=== PATIENT | male | born 1945 | race Caucasian/White ===

== ENCOUNTER 2019-06-22 23:39 | Observation (INO) ==
[2019-06-23 00:13] LABS: INFLUENZA A NEGATIVE (NEGATIVE); INFLUENZA B NEGATIVE (NEGATIVE)
--- NOTE | 2019-06-23 00:38 | PROVIDER DOCUMENTATION ---
This chart was entered by Kim Mancilla Scribe, acting as scribe for Demi Ochoa CRNP. HPI-General Adult - General Source: patient, EMS - History of Present Illness -Gen Adult Nature of Presenting Problems: pt is a 74 yowm presenting w/[facility] w/cc fever, N/V and weakness starting at 1500 today. denies diarrhea, cp and chills. denies pain. ems sts pt was able to ambulate to stretcher. Location of Pain/Injury: reports: generalized (weakness) Pain Radiation: reports: no radiation Quality of Pain: reports: none Severity: reports: mild Onset/Duration: reports: this afternoon Timing: reports: still present Context/Activities at Onset: reports: none Modifying Factors: improves with: nothing Associated Symptoms: reports: fever/chills, weakness <Demi Ochoa - Last Filed: 06/23/19 00:37> <Luis Maravilla - Last Filed: 06/23/19 05:06> - General Stated Complaint: weakness "Fever?" Time Seen by Provider: 06/22/19 23:46 Allergies/Adverse Reactions: Patient Allergies Allergy/AdvReac Type Severity Reaction Status Date / Time No Known Allergies Allergy Verified 06/23/19 02:32 Home Medications: Home Medication List Medication Instructions Recorded Confirmed Last Taken Type Amlodipine Besylate 1 tab PO DAILY 06/23/19 06/23/19 Unknown History Levothyroxine [Synthroid] 1 tab PO DAILY 06/23/19 06/23/19 Unknown History Lisinopril 1 tab PO DAILY 06/23/19 06/23/19 Unknown History Review of Systems - Adult - REVIEW OF SYSTEMS - ADULT Constitutional: reports: see HPI, fever. denies: chills, fatique, night sweats Eyes: reports: no symptoms reported Ears, Nose, Mouth & Throat: reports: no symptoms reported Cardiovascular: reports: no symptoms reported. denies: chest pain, irregular heart rate, palpitations Respiratory: reports: no symptoms reported Gastrointestinal: reports: no symptoms reported. denies: diarrhea, nausea, vomiting Genitourinary: reports: no symptoms reported Musculoskeletal: reports: see HPI, muscle weakness (generalized). denies: bone pain, back pain, frequent leg cramps, neck pain Integumentary: reports: no symptoms reported Neurological: reports: no symptoms reported Psychiatric: reports: no symptoms reported Endocrine: reports: no symptoms reported Hematologic/Lymphatic: reports: no symptoms reported Allergic/Immunologic: reports: no symptoms reported All Other Systems: Reviewed and Negative <Demi Ochoa - Last Filed: 06/23/19 00:37> Past History - Adult - PAST MEDICAL HISTORY-ADULT Review of Records: reports: Nursing Assessment Review, Medications Reviewed, Social history reviewed & non-contributory. Major Childhood Illnesses: reports: denies history Cardiovascular: reports: HTN Respiratory: reports: denies history Gastrointestinal: reports: denies history Obstetrical/Gynecological: reports: denies history Genitourinary: reports: denies history Musculoskeletal: reports: denies history Neurological: reports: denies history Endocrine/Immune: reports: denies history Other Conditions: reports: denies history - PRIOR SURGERIES/PROCEDURES Surgical/Procedure History: reports: none - IMMUNIZATION STATUS Childhood Immunizations: See Nurse Assessment Flu Vaccine: See Nurse Assessment - FAMILY HISTORY Family History: reviewed, not pertinent - SOCIAL HISTORY Smoking: non-smoker Substance Use: none/never <Demi Ochoa - Last Filed: 06/23/19 00:37> Physical Exam-General - PHYSICAL EXAM-ADULT Initial Vital Signs Reviewed: Yes - CONSTITUTIONAL General Appearance: appears well, alert, no apparent distress - EYES Eyes: PERRL/EOMI - HEAD, EARS, NOSE, MOUTH & THROAT HENMT: normocephalic/atraumatic, moist mucous membranes - NECK Neck: non-tender, full range of motion, supple, normal inspection - RESPIRATORY Respiratory: chest non-tender, lungs clear, normal breath sounds - CARDIOVASCULAR Cardiovascular: normal peripheral pulses, regular rate, rhythm - GASTROINTESTINAL (ABDOMEN) Abdominal Exam: normal bowel sounds, non tender, soft - MUSCULOSKELETAL Back Exam: normal inspection Extremity: normal range of motion, non-tender, normal inspection, normal capill emeli refill, pelvis stable - SKIN Integumentary: normal color, normal turgor, warm/dry - NEUROLOGIC Neurologic: grossly normal, no motor/sensory deficits - PSYCHIATRIC Psych/Mental Status: normal mood/affect, normal thought content, normal thought process, oriented x 3 <Demi Ochoa - Last Filed: 06/23/19 00:37> Progress - PLAN OF CARE/RESULTS Progress/Plan/Lab Results: Orders Category Date Time Status FSBS/Accucheck Result NOW Care 06/22/19 23:45 Active CBC WITH ELECTRONIC DIFF [HEME] Stat Lab 06/22/19 23:45 Ordered CMP [COMPREHENSIVE METABOLIC PANEL] [CHEM] Stat Lab 06/22/19 23:45 Uncollected - CHANGE OF SHIFT REPORT (ED Provider) 1 Report Given and Care Transferred to:: Dr. Maravilla Time of Transfer: 01:00 <Demi Ochoa - Last Filed: 06/23/19 00:37> - PLAN OF CARE/RESULTS Progress/Plan/Lab Results: Vital Signs - 8 hr 06/22/19 23:45 06/23/19 02:36 Temperature 99.4 F 97.6 F Pulse Rate 109 H 77 Respiratory Rate 18 18 Blood Pressure 121/80 108/77 O2 Sat by Pulse Oximetry 93 L 95 Laboratory Results - last 24 hr 06/22/19 06/23/19 06/23/19 23:51 00:22 00:22 WBC 17.05 H RBC 6.06 Hgb 18.0 Hct 51.5 MCV 85.0 MCH 29.7 MCHC 35.0 RDW Std Deviation 13.3 Plt Count 270 MPV 8.8 Immature Gran % (Auto) 0.2 Neut % (Auto) 90.7 H Lymph % (Auto) 2.9 L Eagle % (Auto) 6.0 Eos % (Auto) 0.1 Baso % (Auto) 0.1 Immature Gran # (Auto) 0.04 Neut # (Auto) 15.46 H Lymph # (Auto) 0.50 L Eagle # (Auto) 1.03 H Eos # (Auto) 0.01 Baso # (Auto) 0.01 Sodium 137 Potassium 4.6 Chloride 103 Carbon Dioxide 16 L Anion Gap 18 BUN 16 Creatinine 1.5 H Estimated GFR/1.73 m2 46 BUN/Creatinine Ratio 11 Glucose 113 H Calculated Osmolality 276 Calcium 9.5 Total Bilirubin 0.70 AST 18 ALT 21 Alkaline Phosphatase 81 Total Protein 7.4 Albumin 4.2 Globulin 3.0 Albumin/Globulin Ratio 1.0 Lipase 26 Influenza A (Rapid) NEGATIVE Influenza B (Rapid) NEGATIVE Orders Category Date Time Status FSBS/Accucheck Result NOW Care 06/22/19 23:45 Active Saline Loc NOW Care 06/22/19 23:46 Active cxr [CHEST-PORTABLE] [RAD] Stat Exams 06/22/19 23:47 Taken BLOOD CULTURE [BLDCUL] Stat Lab 06/23/19 02:20 Ordered CBC WITH ELECTRONIC DIFF [HEME] Stat Lab 06/22/19 23:45 Completed CMP [COMPREHENSIVE METABOLIC PANEL] [CHEM] Stat Lab 06/22/19 23:45 Completed Flu [INFLUENZA SCREEN PL] Stat Lab 06/22/19 23:51 Completed LIPASE [CHEM] Stat Lab 06/23/19 00:22 Completed URINALYSIS W/POSS RFLX CULT [URINALYSIS] Stat Lab 06/22/19 23:46 Uncollected Result Diagrams: 06/23/19 00:22 06/23/19 00:22 - XRAY 1 XRAY Study: Chest XRAY Interpretation: NAD - CT/MRI 1 CT Study: Abdomen, Pelvis CT Results: cholelithiasis with cholecystitis, mild sigmoid diverticulitis - CONSULTS/PCP/HOSPITALIST Notification #1 *Consult/PCP/Hospitalist*: Dr. Perez, surgeon correspondence clerk Time Discussed: 04:50 Reason/Comments: admit to hospitalist at [facility] #2 Consult: Dr. Guillen, hospitalist at [facility] Time Discussed: 05:00 Consult Disposition: Admit <Luis Maravilla - Last Filed: 06/23/19 05:06> Departure <Demi Ochoa - Last Filed: 06/23/19 00:37> - Departure Date of Disposition Decision: 06/23/19 Time of Disposition Decision: 05:06 Certified Medical Emergency: Emergent - Critical Care Note This patient required my direct & personal management of CC.: No <Luis Maravilla - Last Filed: 06/23/19 05:06> - Departure DIAGNOSIS: Weakness, Acute cholecystitis, Sigmoid diverticulitis Cholelithiasis Qualifiers: Cholelithiasis location: gallbladder Cholecystitis presence: with cholecystitis Cholecystitis acuity: acute Biliary obstruction: without biliary obstruction Qualified Code(s): K80.00 - Calculus of gallbladder with acute cholecystitis without obstruction Disposition: ADMITTED INPATIENT 09 Condition: Stable Referrals and Follow-Ups: None,PCP [Primary Care Provider] - Attestation - Physician/ PREETHI Attestation Patient care was provided by Advanced Practice Provider:: Yes Advanced Practice Provider:: Demi Ochoa Advanced Practice Provider documentation review:: The Mid-level provider documentation, treatment plan and medical decision making was reviewed by the physician who agrees with all treatment and medical decision making by the MLP. The physician spent face to face time with patient:: Yes Advanced Practice Provider documentation review:: Supervising physician onsite and consulted in the evaluation and care of this patient. The physician did have a face to face encounter with the patient. <Demi Ochoa - Last Filed: 06/23/19 00:37> This chart was documented by the indicated scribe, (Kim Mancilla Scribe) and accurately reflects the services I performed and decisions made by me, Demi Lin CRNP, as attested by the provider's signature.
[2019-06-23 01:20] LABS: BASO# 0.01 X1000 (0.0-0.2); BASO% 0.1 % (0.0-0.8); EOS# 0.01 X1000 (0.0-0.7); EOS% 0.1 % (0.0-10.0); HEMATOCRIT 51.5 % (42.0-52.0); IMM GRAN# 0.04 X1000 (0.0-0.04); IMM GRAN% 0.2 % (0.0-0.5); LYMPH% 2.9 % (20.5-51.1); MCH 29.7 PG (27-31); MONO# 1.03 X1000 (0.11-0.59); MPV 8.8 FL (7.4-10.4); NEUT# 15.46 X1000 (1.4-6.5); NEUT% 90.7 % (42.2-75.2); PLT 270 X1000 (130-400); RBC 6.06 XMIL (4.7-6.1); RDW 13.3 % (11.5-14.5); WBC 17.05 X1000 (4.8-10.8)
[2019-06-23 01:47] LABS: ALBUMIN 4.2 g/dL (3.5-5.0); CALCIUM 9.5 mg/dL (8.8-10.2); CREATININE 1.5 mg/dL (0.7-1.2); TOTAL BILIRUBIN 0.7 mg/dL (0.20-1.00); TOTAL PROTEIN 7.4 g/dL (6.3-8.3)
[2019-06-23 01:56] LABS: POTASSIUM 4.6 mmol/L (3.5-5.1)
[2019-06-23] MEDS ORDERED: ROCEPHIN 1 GM in NS 50 ML IV ONE (02:56)
[2019-06-23] MEDS ORDERED: NS 50 ML ONE (03:42)
[2019-06-23] MEDS ORDERED: ZOSYN 3.375 GM in NS 50 ML IV ONE (04:00)
--- NOTE | 2019-06-23 05:05 | EKG Report ---
Test Performed on : 06/23/2019 04:40:53 AM Test Reason : medical clearance Blood Pressure : / mmHG Vent. Rate : 065 BPM Atrial Rate : 065 BPM P-R Int : 166 ms QRS Dur : 084 ms QT Int : 400 ms P-R-T Axes : 030 008 041 degrees QTc Int : 416 ms Normal sinus rhythm. Nonspecific T wave abnormality Abnormal ECG When compared with ECG of 11-MAR-2011 07:24, Nonspecific T wave abnormality no longer evident in Inferior leads Unconfirmed Result
[2019-06-23] MEDS ORDERED: ZOFRAN IV PRN ×2 (05:06→17:18)
[2019-06-23] MEDS ORDERED: NS 1,000 ML IV ONE (05:06)
[2019-06-23 05:23] LABS: URINE SOURCE CLEAN CATCH
[2019-06-23 05:25] LABS: BILIRUBIN URINE NEGATIVE (NEGATIVE); BLOOD URINE NEGATIVE (NEGATIVE); COLOR YELLOW; GLUCOSE URINE NEGATIVE (NEGATIVE); KETONE URINE NEGATIVE (NEGATIVE); LEUKOCYTES URINE NEGATIVE (NEGATIVE); NITRITE URINE NEGATIVE (NEGATIVE); PROTEIN URINE TRACE mg/dL (NEGATIVE); SP GRAVITY URINE 1.026; TURBIDITY URINE CLEAR (CLEAR); UROBILINOGEN URINE NORMAL (NORMAL)
[2019-06-23 05:27] LABS: UR EPITHELIAL CELLS <10 /HPF (<10); URINE BACTERIA NEGATIVE /HPF; URINE RBC <10 /HPF (<10); URINE WBC <10 /HPF (<10)
--- NOTE | 2019-06-23 05:40 | Diag Imaging Result Doc PS360 ---
EXAM: CHEST-PORTABLE HISTORY: Fever, Weakness TECHNIQUE: Single view COMPARISON: 03/11/2011 FINDINGS: The lungs are well expanded. The heart is not enlarged. The vessels are not distended. There are no infiltrates. No effusion identified. There has been surgery to the lower neck. IMPRESSION: Negative exam. Electronically signed by [place] Boles 06/23/2019 5:38 AM
--- NOTE | 2019-06-23 05:47 | Diag Imaging Result Doc PS360 ---
EXAM: CT ABDOMEN/PELVIS W/O CONTRAST HISTORY: nausea,vomiting,leukocytosis TECHNIQUE: CT chest without oral or intravenous contrast COMPARISON: 03/11/2011 FINDINGS: There is a moderate sized hiatal hernia. There are several calcified stones within the gallbladder. Mild thickening to the gallbladder wall. No focal hepatic normality identified on this noncontrasted exam. No splenomegaly. No inflammation about the pancreas. Normal adrenal glands. No renal stones. No hydronephrosis. No aortic aneurysm. Moderate atherosclerosis. No bowel obstruction. Normal appendix. There are scattered colonic diverticula. No definite inflammation or wall thickening. The prostate is prominent. The urinary bladder is distended and appears normal. There are degenerative spine changes. There are small fat filled inguinal hernias. No bowel loops within these. IMPRESSION: 1.Cholelithiasis and probably cholecystitis 2.Moderate-sized hiatal hernia 3.Colonic diverticulosis 4.Moderate atherosclerosis 5.Prominent prostate 6.Small fat filled inguinal hernias. 7.A preliminary report was given at 3:46 AM This exam was performed using automated exposure control, adjustment of mA or kV according to patient size, and/or use of iterative reconstruction technique. Electronically signed by [place] Boles 06/23/2019 5:44 AM
[2019-06-23] MEDS: ZOSYN 3.375 GM in NS 50 ML IV SCH ×2 (11:10→17:20)
[2019-06-23] MEDS ORDERED: DIPRIVAN 1% ONE (13:21)
[2019-06-23] MEDS ORDERED: FENTANYL ONE ×2 (13:22→15:15)
[2019-06-23] MEDS ORDERED: XYLOCAINE-MPF 2% ONE (13:24)
[2019-06-23] MEDS ORDERED: ZOFRAN ONE (13:24)
[2019-06-23] MEDS ORDERED: QUELICIN (DOSE) ONE (13:24)
[2019-06-23] MEDS ORDERED: DECADRON ONE (13:24)
[2019-06-23] MEDS ORDERED: SENSORCAINE-MPF 0.5%/EPI 1:200,000 ONE (13:30)
[2019-06-23] MEDS ORDERED: LR 1,000 ML ONE (13:31)
[2019-06-23] MEDS ORDERED: SODIUM CHLORIDE 0.9% ONE (13:31)
--- NOTE | 2019-06-23 15:10 | HISTORY AND PHYSICAL ---
CHIEF COMPLAINT: Abdominal pain. HISTORY OF PRESENT ILLNESS: The patient is a very pleasant 74-year-old male who presented to the emergency department with fever, cough, nausea, vomiting. States he has been weak. He denies any real chest pains or chills. Denies diarrhea. Does states he has been nauseated. ALLERGIES: No known drug allergies. MEDICATIONS: Amlodipine, lisinopril, levothyroxine. REVIEW OF SYSTEMS: As noted above. Positive generalized weakness. Denies any real abdominal pain. Does states he has some nausea denies chills denies night sweats. Denies chest pain, palpitations. Denies headaches, blurred vision, change in vision denies any focalized weakness. Denies shortness of breath, swelling in his lower extremities. PAST MEDICAL HISTORY: Hypertension, hypothyroidism. FAMILY HISTORY: Noncontributory. SOCIAL HISTORY: Patient is a nonsmoker. Does not drink. PHYSICAL EXAMINATION: VITAL SIGNS: Reviewed: Temp 99 degrees pulse 109, respiratory rate 18, BP 121/80 sat 93% on room air. GENERAL: Patient is awake, pleasant. He is in no current respiratory distress. HEENT: Normocephalic. NECK: Supple. CARDIOVASCULAR: Regular rate. CHEST: Clear, nonlabored. ABDOMEN: Soft, nondistended, nontender. EXTREMITIES: Moves all extremities. NEUROLOGIC: No changes. LABS REVIEWED: White count 17, H H 18 and 51. BMP with a creatinine at 1.5, bicarb 16, glucose 113. CT demonstrates cholelithiasis with cholecystitis and mild sigmoid diverticulitis. ASSESSMENT: 1. Acute cholelithiasis with cholecystitis. 2. Sigmoid diverticulitis. 3. Leukocytosis. 4. Acute renal insufficiency. 5. Metabolic acidosis. 6. Hypertension. 7. Hypothyroidism. 8. Generalized weakness. PLAN: We are going to admit the patient hospital. Transfer to [facility] for surgical input on his cholecystitis. Place him on antibiotics, IV fluids. We will follow his blood pressures. Further orders as needed. cc: Stef Willoughby MD
--- NOTE | 2019-06-23 15:26 | GENERAL SURGERY CONSULTATION ---
DATE: 06/23/2019 REASON FOR CONSULTATION: Possible cholecystitis. CHIEF COMPLAINT: Fever and epigastric abdominal pain. HISTORY OF PRESENT ILLNESS: This is a 74-year-old gentleman who is reasonably healthy. 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 He has hypertension and low thyroid. He developed some epigastric discomfort, lower chest, and some nausea. He has had similar bouts leading up to this as well. He came to the emergency room where a CT scan was obtained that suggested early cholecystitis with cholelithiasis in the gallbladder. He was admitted to the hospitalist, and I was consulted. MEDICAL HISTORY: As noted in HPI. SURGICAL HISTORY: Negative. SOCIAL HISTORY: He smoked many years ago, but denies any current use. He is retired from construction. FAMILY HISTORY: Negative for cancer. REVIEW OF SYSTEMS: A 10-point review of systems is negative other than what is mentioned in HPI. PHYSICAL EXAMINATION: He is afebrile, pulse 66, blood pressure 126/86, oxygen saturation is 98% on room air. He is 185 pounds, 5 foot 8 inches.General: He is alert, in no acute distress. HEENT: No scleral icterus. No cervical mass. Cardiovascular: Normal rate. Pulmonary: No increased work of breathing on room air. Abdomen: Soft. Mild tenderness to right upper quadrant. Nontender, nondistended. No peritonitis. integument: Warm, dry, without jaundice. Psychiatric: Appropriate affect. Neurologic: No gross deficits. Peripheral vascular: Trace lower extremity edema. LABORATORY AND DIAGNOSTIC DATA: White count 17, hematocrit 51, platelets 270,000. Creatinine is 1.5. LFTs are normal. Lipase normal. Urinalysis shows trace protein. Flu A and B were negative. He had a chest x-ray that was negative, and a CT scan that showed several nonacute findings, but did show some stranding around the gallbladder and gallstones. ASSESSMENT/PLAN: This is a 74-year-old gentleman with likely early cholecystitis, at least symptomatic cholelithiasis. We discussed risk of bleeding, infection, damage to surrounding structures, bile leak, conversion to open, anticipated recovery, and hospital course. He understands and consents. We will go the operating room today for laparoscopic cholecystectomy with cholangiogram. In the meantime, we will keep him NPO, IV fluids, and antibiotics. cc: Tammy Perez MD
--- NOTE | 2019-06-23 15:46 | Diag Imaging Result Doc PS360 ---
EXAM: OPERATIVE CHOLANGIOGRAM 06/23/2019 HISTORY: ACUTE CHOLECYSTITIS TECHNIQUE: Intraoperative cholangiogram two views COMMENT: The common bile duct is opacified and there is no evidence of obstruction or filling defect. The cystic duct is apparently patent. IMPRESSION: No evidence of retained stones in the common bile duct. Electronically signed by Lars Castrejon 06/23/2019 3:43 PM
[2019-06-23] MEDS: MORPHINE IV PRN ×3 (17:20→22:49)
--- NOTE | 2019-06-23 18:33 | PROGRESS NOTE ---
DATE: 06/23/2019 INTERVAL HISTORY: Patient's pain well controlled. Afebrile. No new complaints. No acute events overnight. Currently n.p.o. for possible surgery later today. REVIEW OF SYSTEMS: Twelve-point review of systems negative except as per interval history. LABS: WBC 17.0, hemoglobin 18.0, hematocrit 51.5, platelets 270. Sodium 137, potassium 4.6, bicarb 16, BUN 16, creatinine 1.5, glucose 113. Bilirubin 0.7, AST 18, ALT 21, alkaline phosphatase 81. Urinalysis unremarkable. Flu negative. IMAGING: CT abdomen pelvis with cholelithiasis and likely cholecystitis. Diverticulosis, small hernia. VITALS: T-max 98.8, pulse 66, respirations 21, blood pressure 126/86, O2 saturation 98% on room air. PHYSICAL EXAMINATION: General: No acute distress. Vitals: As above. HEENT: Normocephalic, atraumatic. Moist mucous membranes. No cervical adenopathy. Cardiovascular: Regular rate and rhythm. No murmurs noted. Pulmonary: Clear to auscultation bilaterally. No wheezing, rales, or rhonchi. Abdomen: Soft. Minimal right upper quadrant tenderness without rebound or guarding. Bowel sounds positive. Extremities: Peripheral pulses intact. No clubbing or cyanosis. Neurologic: Cranial nerves grossly intact. No focal deficits. Psychiatric: Normal mood and affect. Awake, alert, cooperative. ASSESSMENT AND PLAN: 1. Likely cholecystitis. Liver function tests are actually essentially normal. The patient currently n.p.o. for possible laparoscopic cholecystectomy later today. On antibiotics with Zosyn, which we will continue for now. 2. Likely chronic kidney disease 3. Creatinine elevated at 1.5. No baseline to compare to, but given normal BUN, suspect this is his baseline. We will continue IV fluids and monitor. 3. Hypotension. Blood pressure remains frequently in the low normal range, but no further lizett hypotension. Continue fluids and antibiotics and monitor. 4. Hypertension. Holding home blood pressure medicines currently. 5. Hypothyroidism. Restart home Synthroid once he is taking p.o..
[2019-06-23] MEDS ORDERED: FLU VACCINE IM ONE (20:13)
--- NOTE | 2019-06-24 03:06 | OPERATIVE NOTE ---
PROCEDURE DATE: 06/23/2019 PREOPERATIVE DIAGNOSIS: Acute cholecystitis. POSTOPERATIVE DIAGNOSIS: Acute cholecystitis. PROCEDURE PERFORMED: Laparoscopic cholecystectomy with cholangiogram. ESTIMATED BLOOD LOSS: 10 mL SPECIMEN: Gallbladder. ANESTHESIA: General. FINDINGS: 1. Acutely inflamed gallbladder with thickened urias. 2. Interpretation of cholangiogram showed rapid flow of contrast through a nondilated cystic duct into a nondilated common bile duct. Intrahepatic radicals normal. Duodenum filled normally with no filling defects. OPERATIVE NOTE: Risks, benefits and alternatives were discussed with the patient, who consented to the procedure. Seen preoperatively, surgical site was confirmed. Taken to the operating room and placed in supine position. General anesthesia was induced. His abdomen was prepped with chlorhexidine solution and draped in the usual fashion. After a time-out, a supraumbilical incision was made and carried down to the fascia. The fascia was incised and the abdomen was entered in an open controlled fashion. A 12 mm Kiki trocar was placed. Three additional trocars, 5 mm, were placed along the costal margin. The gallbladder was grasped and retracted cephalad. We took down omental adhesions, starting laterally and progressing medially. We stripped down the peritoneum overlying the infundibulocystic junction, encircling this, and encircled the cystic artery as it coursed through this triangle as well. We dissected both circumferentially. A clip was placed on the gallbladder side of the cystic duct. Ductotomy was made and cholangiogram was performed. We then doubly clipped the cystic artery and divided it. The gallbladder was removed intact from the gallbladder fossa. It was placed in an EndoCatch bag. We irrigated the abdomen until clear. There was no bile leakage. There was no bleeding. We removed the remaining trocars and deflated the abdomen. We brought the gallbladder out through the umbilical incision. The fascia was closed with 0 Vicryl. The skin was closed with surgical clips. Gauze Medipore dressing was applied. He tolerated it well. No complication. I spoke with family. cc: Tammy Perez MD
[2019-06-24] MEDS: MORPHINE IV PRN (03:09)
[2019-06-24] MEDS: NORCO-7.5 PO PRN ×3 (06:49→16:40)
[2019-06-24 15:40] VITALS: BP 128/84
[2019-06-24] MEDS ORDERED: PNEUMOVAX 23 IM ONE (16:14)
== END 2019-06-24 17:12 | disposition home or self-care (01) ==
LOC: 4N 23:39 → P.ED 23:39 → SUATTDRO 06-23 07:14
PROVIDERS: ATTEND Internal Medicine